=== PATIENT | female | born 1970 | race American Indian/Alaskan Native ===

== ENCOUNTER 2016-07-09 13:23 | Inpatient (IN) | payer MEDICAID ==
[2016-07-09] MEDS ORDERED: NITRO-BID 2% TP ONE (13:46)
[2016-07-09] MEDS ORDERED: ZOFRAN IV ONE (13:46)
[2016-07-09] MEDS ORDERED: MORPHINE IV ONE (13:46)
--- NOTE | 2016-07-09 13:50 | Emergency Department Report ---
ED Chest Pain HPI - General Chief Complaint: Chest Pain Stated Complaint: CHEST PAIN Time Seen by Provider: 07/09/16 13:38 Source: patient, EMS, old records reviewed (cardiac cath 2014 reviewed) Mode of arrival: Stretcher Limitations: No Limitations - History of Present Illness Initial Comments: 45-year-old female with past medical history hypertension, elevated cholesterol , CAD with stent 1 presents to the hospital with complaints of left-sided chest pain that started 2 hours prior to arrival. Pain is squeezing, constant without aggravating alleviating factors. Patient received aspirin and nitroglycerin sublingual 1 prior to arrival without improvement. Positive associated shortness of breath but denies nausea, vomiting, or diaphoresis. Similar to previous PA related chest pain but worse today. Rated 9/10 in intensity. Organ Teacher: Dr. Ross Severity scale (0 -10): 9 - Related Data Home Medications Medication Instructions Recorded Confirmed Last Taken Prasugrel (6 Tab) [Effient (6 Tab)] 10 mg PO DAILY 06/19/15 06/19/15 05/29/15 08 :00 Simvastatin [Simvastatin] 20 mg PO DAILY 06/19/15 06/19/15 05/29/15 08:00 Previous Rx's Medication Instructions Recorded Last Taken Type Aspirin [Aspirin TAB] 325 mg PO QDAY #30 tablet 03/29/14 06/18/15 Rx Carvedilol [Coreg] 3.125 mg PO BID #60 tablet 03/29/14 05/29/15 20:00 Rx Ibuprofen [Motrin] 600 mg PO Q6H PRN #30 tablet 06/20/15 Unknown Rx Allergies Allergy/AdvReac Type Severity Reaction Status Date / Time No Known Allergies Allergy Verified 06/19/15 10:18 NELSON score - Nelson Score Age > 65: (0) No Aspirin use within the Past 7 Days: (1) Yes 3 or more CAD Risk Factors: (1) Yes 2 or more Angina events in past 24 hrs: (1) Yes Known CAD with more than 50% Stenosis: (1) Yes Elevated Cardiac Markers: (0) No ST Deviation Greater than 0.5mm: (0) No NELSON Score: 4 ED Review of Systems ROS: Stated complaint: CHEST PAIN Other details as noted in HPI Comment: All other systems reviewed and negative Other: Constitutional: No fevers chills Eyes: No eye pain visual changes ENT: No ear pain or throat pain Neck: Denies pain Respiratory: Denies cough wheezing Cardiovascular: Denies palpitations, syncope GI: Denies abdominal pain, nausea, vomiting, diarrhea : Denies dysuria, urinary frequency, or urgency Musculoskeletal: Denies back pain, joint swelling Skin: Denies rash, lesions, erythema Neurologic: Denies headache, numbness, weakness Psychiatric: Denies suicidal ideation, hallucinations ED Past Medical Hx - Past Medical History Hx Hypertension: Yes (since 2013) Hx Heart Attack/AMI: Yes (02/2014) Hx Diabetes: No Hx Renal Disease: No Hx Headaches / Migraines: Yes (rare migraine) Hx Asthma: No Hx COPD: No Additional medical history: Syncope of unknown etiology usually associated with hot environment. - Surgical History Hx Coronary Stent: Yes (x2 02/2014) Hx Pacemaker: No Additional Surgical History: Stent placement 03/28/2014. - Social History Smoking Status: Never Smoker - Medications Home Medications: Home Medications Medication Instructions Recorded Confirmed Last Taken Type Aspirin [Aspirin TAB] 325 mg PO QDAY #30 tablet 03/29/14 06/20/15 06/18/15 Rx Carvedilol [Coreg] 3.125 mg PO BID #60 tablet 03/29/14 06/19/15 05/29/15 20:00 Rx Prasugrel (6 Tab) [Effient (6 Tab)] 10 mg PO DAILY 06/19/15 06/19/15 05/29/15 08 :00 History Simvastatin [Simvastatin] 20 mg PO DAILY 06/19/15 06/19/15 05/29/15 08:00 History Ibuprofen [Motrin] 600 mg PO Q6H PRN #30 tablet 06/20/15 Unknown Rx ED Physical Exam - General Limitations: No Limitations - Other Other exam information: General: No limitations, patient is alert in no acute distress Head exam: Atraumatic, normocephalic Eyes exam: Normal appearance, pupils equal reactive to light, extraocular movements intact ENT: Moist mucous membrane, normal oropharynx Neck exam: Normal inspection, full range of motion, no meningismus nontender Respiratory exam: Clear to auscultation bilateral, no wheezes, rales, crackles, chest wall nontender Cardiovascular: Normal rate and rhythm, normal heart sounds Abdomen: Soft, nondistended, and nontender, with normal bowel sounds, no rebound, or guarding Extremity: Full range of motion normal inspection no deformity, no calf tenderness or edema Back: Normal Inspection, full range of motion, no tenderness Neurologic: Alert, oriented x3, cranial nerves intact, no motor or sensory deficit Psychiatric: normal affect, normal mood Skin: Warm, dry, intact ED Course Vital Signs 07/09/16 07/09/16 13:26 14:55 Pulse Rate 84 Respiratory 16 Rate Blood Pressure 140/80 134/79 Blood Pressure 140/80 [Left] O2 Sat by Pulse 98 Oximetry - Reevaluation(s) Reevaluation #1: 07/09/16 14:58 Patient received aspirin, morphine, and nitroglycerin 0.5 in paste with some improvement in pain. 07/09/16 15:07 Reevaluation #2: 07/09/16 15:07 Patient continues to complain of pain in that medications did not help. Dilaudid 0.5 mg ordered 07/09/16 15:07 - Consultations Consultation #1: 07/09/16 15:04 Case discussed with Breann jean baptiste. Cardiology will evaluate patient ED Medical Decision Making - Lab Data Result diagrams: 07/09/16 14:13 07/09/16 14:13 Lab Results 07/09/16 07/09/16 07/09/16 Range/Units 14:13 14:13 14:13 WBC 7.0 (4.5-11.0) K/mm3 RBC 4.10 (3.65-5.03) M/mm3 Hgb 11.2 (10.1-14.3) gm/dl Hct 34.5 (30.3-42.9) % MCV 84 (79-97) fl MCH 27 L (28-32) pg MCHC 32 (30-34) % RDW 14.1 (13.2-15.2) % Plt Count 294 (140-440) K/mm3 Lymph % (Auto) 35.8 H (13.4-35.0) % [place] % (Auto) 9.4 H (0.0-7.3) % Eos % (Auto) 1.7 (0.0-4.3) % Baso % (Auto) 0.7 (0.0-1.8) % Lymph # 2.5 (1.2-5.4) K/mm3 [place] # 0.7 (0.0-0.8) K/mm3 Eos # 0.1 (0.0-0.4) K/mm3 Baso # 0.0 (0.0-0.1) K/mm3 Seg Neutrophils % 52.4 (40.0-70.0) % Seg Neutrophils # 3.6 (1.8-7.7) K/mm3 PT (12.2-14.9) Sec. INR (0.87-1.13) Sodium 142 (137-145) mmol/L Potassium 4.2 (3.6-5.0) mmol/L Chloride 103.1 (98-107) mmol/L Carbon Dioxide 22 (22-30) mmol/L Anion Gap 21 mmol/L BUN 12 (7-17) mg/dL Creatinine 0.7 (0.7-1.2) mg/dL Estimated GFR > 60 ml/min BUN/Creatinine Ratio 17.14 % Glucose 97 (65-100) mg/dL Calcium 9.2 (8.4-10.2) mg/dL Total Creatine Kinase 130 (30-135) units/L CK-MB (CK-2) 1.6 (0.0-4.0) ng/mL CK-MB (CK-2) Rel Index 1.2 (0-4) Troponin T < 0.010 (0.00-0.029) ng/mL 07/09/16 Range/Units 14:13 WBC (4.5-11.0) K/mm3 RBC (3.65-5.03) M/mm3 Hgb (10.1-14.3) gm/dl Hct (30.3-42.9) % MCV (79-97) fl MCH (28-32) pg MCHC (30-34) % RDW (13.2-15.2) % Plt Count (140-440) K/mm3 Lymph % (Auto) (13.4-35.0) % [place] % (Auto) (0.0-7.3) % Eos % (Auto) (0.0-4.3) % Baso % (Auto) (0.0-1.8) % Lymph # (1.2-5.4) K/mm3 [place] # (0.0-0.8) K/mm3 Eos # (0.0-0.4) K/mm3 Baso # (0.0-0.1) K/mm3 Seg Neutrophils % (40.0-70.0) % Seg Neutrophils # (1.8-7.7) K/mm3 PT 12.1 L (12.2-14.9) Sec. INR 0.90 (0.87-1.13) Sodium (137-145) mmol/L Potassium (3.6-5.0) mmol/L Chloride (98-107) mmol/L Carbon Dioxide (22-30) mmol/L Anion Gap mmol/L BUN (7-17) mg/dL Creatinine (0.7-1.2) mg/dL Estimated GFR ml/min BUN/Creatinine Ratio % Glucose (65-100) mg/dL Calcium (8.4-10.2) mg/dL Total Creatine Kinase (30-135) units/L CK-MB (CK-2) (0.0-4.0) ng/mL CK-MB (CK-2) Rel Index (0-4) Troponin T (0.00-0.029) ng/mL - EKG Data -: EKG Interpreted by Me (nsr rate 78 nonstemi) - EKG Data When compared to previous EKG there are: no significant change (04/25/14) - Radiology Data Radiology results: report reviewed (cxr: naf) - Medical Decision Making ED workup unremarkable. Given patient's history will admit the hospital further cardiac enzymes, monitoring, and evaluation - Differential Diagnosis PA, unstable angina, atypical chest pain, PE Critical Care Time: No Critical care attestation.: If time is entered above; I have spent that time in minutes in the direct care of this critically ill patient, excluding procedure time. ED Disposition Clinical Impression: H/O heart artery stent Chest pain Qualifiers: Chest pain type: chest pain on breathing Qualified Code(s): R07.1 - Chest pain on breathing Hyperlipidemia Qualifiers: Hyperlipidemia type: unspecified Qualified Code(s): E78.5 - Hyperlipidemia, unspecified Disposition: OP ADMITTED IP TO THIS HOSP Is pt being admited?: Yes Condition: Stable Referrals: PRIMARY CARE, [Primary Care Provider] - 3-5 Days Time of Disposition: 15:01 (DR allred/hosp)
--- NOTE | 2016-07-09 13:59 | Admit Criteria Form ---
Admission Criteria Documentation: CHEST PAIN Clinical Indications for Admission to Inpatient Care (Place 'X' for any and all applicable criteria): Admission is indicated for chest pain and ANY ONE of the following(1)(2)(3)(4)(5 ): [ ]I. Angina with acute coronary syndrome (Also use Myocardial Infarction or Angina guideline) [ ]II. Hemodynamic instability [ X]III. Angina needing acute intervention as indicated by ALL of the following (11)(12): [X ]a) Unstable angina is present as indicated by angina that is ANY ONE of the following: [X ]i) New onset [ ]ii) Nocturnal [ ]iii) Prolonged at rest [ ]iv) Progressive [X ]b) Angina warrants acute intervention as indicated by ANY ONE of the following: [ ]i) Recurrent angina (e.g, not responding as previously to treatment) [ ]ii) Angina at rest or with low-level activities despite initial medical therapy [ ]iii) New or presumably new ST-segment depression on ECG [ ]iv) Signs or symptoms of heart failure (eg, dyspnea, pulmonary edema) [ ]v) New or worsening mitral regurgitation [ ]vi) Hemodynamic instability [ ]vii) Dangerous arrhythmia (eg, sustained ventricular tachycardia) [ ]viii) History of percutaneous coronary intervention within 6 months [ ]ix) History of coronary artery bypass graft surgery [X ]x) NELSON risk score of 2 or greater[A] [ ]xi) History of Diabetes(14) [ ]xii) High-risk cardiac ischemia findings on noninvasive testing (e.g, echocardiogram, treadmill testing, nuclear scan) [ ]xiii) Chronic renal insufficiency (ie, estimated GFR less than 60 mL/min/1.732m) [ ]xiv) Left ventricular ejection fraction less than 40% [ ]IV. Evidence of [place] (eg, cardiac biomarkers positive, ST-segment elevation on ECG) also use Myocardial Infarction Criteria Form. [ ]V. Pulmonary edema [ ]. Respiratory distress [ ]VII. Chest pain indicative of serious diagnosis other than coronary artery disease (eg, aortic dissection) [ ]VIII. Contraindications and/or Inappropriate clinical situations for Observational Care in patients with Chest Pain, when ANY ONE of the following is required: [ ]a) Patient with risk factor for pulmonary embolism, acute coronary syndrome and myocardial infarction (18) [ ]b) Patient with Pulmonary embolism require an average LOS of 4.3 days, therefore emergency department observation management is inappropriate 18,23 [ ]c) Painful condition/s in the elderly, have the highest rate of recidivism after emergency department observation management (10.8%) 20,21,22 [ ]d) Elevated cardiac biomarker requires intensive and exhaustive care (19) [ ]IX. General contraindications and/or Inappropriate clinical situations for Observational Care in patients with Chest Pain, when ANY ONE of the following is required: [ ]a) Prediction of prolongation of LOS based on ANY ONE of the following may be considered as a contraindication for observational care 2, 3, 4, 5, 6, 7, 8, 9, 10, 11 [ ]i) Age > 65 yrs. [ ]ii) Patient arriving by ambulance [ ]iii) Patient with high acuity [ ]iv) Patient requiring vital sign monitoring [ ]v) Patient on IV medication [ ]b) Systolic blood pressures 180mmHg 3,12 [ ]c) Patient with altered mental status including delirium and other alteration of consciousness, (3) [ ]d) Patient whose discharge disposition will be to a detention home or rehabilitation home should not be managed in Emergency Department Observation Unit. CMS rule requires 3 days hospital stay before such placement. 3,13 [ ]e) Patient with failure to thrive due to broad array of etiologies 3,16,17 [ ]f) Inability to ambulate 3,14 Extended stay beyond goal length of stay may be needed for (1)(28): [ ]a) Specific condition diagnosed after evaluation (eg, pulmonary embolism, aortic dissection) [ ]b) Unstable angina [ ]c) Continued suspicion of acute coronary syndrome with inability to complete needed cardiac evaluation (eg, patient clinically unable to undergo stress testing) [ ]d) Myocardial infarction (Contents from ANGINA and CHEST PAIN clinical indications for admission to inpatient care have been integrated in this form) The original [employer] content created by [email or web address] has been revised. The portions of the content which have been revised are identified through the use of italic text or in bold, and [email or web address] has neither reviewed nor approved the modified material. All other unmodified content is copyright [employer]. Please see references footnoted in the original [facility] edition 2016 Admission Criteria Met: Yes
[2016-07-09 14:27] LABS: Basophils % (Auto) 0.7 % (0.0-1.8); Eosinophils % (Auto) 1.7 % (0.0-4.3); Hematocrit 34.5 % (30.3-42.9); Hemoglobin 11.2 gm/dl (10.1-14.3); Mean Corpuscular HGB Conc 32 % (30-34); Mean Corpuscular Hemoglobin 27 pg (28-32); Mean Corpuscular Volume 84 fl (79-97); Platelet Count 294 K/mm3 (140-440); Red Cell Distribution Width 14.1 % (13.2-15.2)
[2016-07-09 14:40] LABS: INR 0.9 (0.87-1.13)
[2016-07-09 14:50] LABS: Anion Gap 21 mmol/L; BUN/Creatinine Ratio 17.14; Blood Urea Nitrogen 12 mg/dL (7-17); Calcium 9.2 mg/dL (8.4-10.2); Carbon Dioxide 22 mmol/L (22-30); Chloride 103.1 mmol/L (98-107); Glucose 97 mg/dL (65-100); Potassium 4.2 mmol/L (3.6-5.0); Sodium 142 mmol/L (137-145)
[2016-07-09 14:51] LABS: Creatine Kinase MB 1.6 ng/mL (0.0-4.0)
--- NOTE | 2016-07-09 14:51 | XRay Report ---
AP CHEST: HISTORY: chest pain AP view of the chest demonstrates a normal mediastinal and cardiac contour with clear lungs and normal bony and soft tissue structures. IMPRESSION: Unremarkable AP chest. No change since 03/24/14.
[2016-07-09] MEDS ORDERED: DILAUDID IV ONE (15:07)
--- NOTE | 2016-07-09 15:29 | Consultation ---
History of Present Illness Consult date: 07/09/16 Requesting physician: BRISEIDA PÉREZ Consult reason: chest pain History of present illness: The patient is a 45 year old female who is followed by Dr. César Ross in the office with a history of CAD s/p PCI of RCA (2013) who presented with complaints of precordial chest pain that started earlier today as she was getting out of the bathtub. She describes the pain as a sharp and squeezing sensation. Associated with shortness of breath and worse with deep inspiration. No palpitations, nausea or vomiting. She states that nitroglycerin has not helped at all. First troponin negative. Stress test done 05/2015 was negative for ischemia. Echo done 05/2015 showed EF 45-50%. Past History Past Medical History: CAD, hyperlipidemia Past Surgical History: PTCA Social history: denies: smoking, alcohol abuse, prescription drug abuse, IV drug use Family history: no significant family history Medications and Allergies Allergies Allergy/AdvReac Type Severity Reaction Status Date / Time No Known Allergies Allergy Verified 06/19/15 10:18 Home Medications Medication Instructions Recorded Confirmed Last Taken Type Aspirin [Aspirin TAB] 325 mg PO QDAY #30 tablet 03/29/14 07/09/16 06/18/15 Rx Carvedilol [Coreg] 3.125 mg PO BID #60 tablet 03/29/14 07/09/16 05/29/15 20:00 Rx Simvastatin [Simvastatin] 20 mg PO DAILY 06/19/15 07/09/16 05/29/15 08:00 History Citalopram [celeXA] 20 mg PO QDAY 07/09/16 07/09/16 Unknown History Prasugrel [Effient] 10 mg PO QDAY 07/09/16 07/09/16 Unknown History Active Meds: Active Medications Enoxaparin Sodium (Lovenox) 40 mg SUB-Q QDAY LEYDI Review of Systems Constitutional: no fever, no chills Ears, nose, mouth and throat: no nasal congestion, no nasal discharge, no sinus pressure Cardiovascular: chest pain, shortness of breath, no palpitations Respiratory: shortness of breath, no cough, no congestion, no wheezing Gastrointestinal: no abdominal pain, no nausea, no vomiting, no diarrhea Genitourinary Female: no dysuria, no urgency Musculoskeletal: no neck stiffness, no neck pain, no myalgias Integumentary: no rash, no pruritis Neurological: no parathesias, no numbness, no tingling, no headaches Endocrine: no cold intolerance, no heat intolerance Hematologic/Lymphatic: no easy bruising, no easy bleeding Allergic/Immunologic: no urticaria, no wheezing Physical Examination Vital Signs Pulse Resp BP Pulse Ox 84 16 140/80 98 07/09/16 13:26 07/09/16 13:26 07/09/16 13:26 07/09/16 13:26 General appearance: no acute distress HEENT: Positive: PERRL, Normocephaly, Mucus Membranes Moist Neck: Positive: neck supple, trachea midline Cardiac: Positive: Reg Rate and Rhythm, S1/S2 Lungs: Positive: clear to auscultation Neuro: Positive: Grossly Intact Abdomen: Positive: Soft, Active Bowel Sounds. Negative: Tender Skin: Positive: Clear. Negative: Rash Extremities: Present: normal. Absent: edema Results 07/09/16 14:13 07/09/16 14:13 - Imaging and Cardiology Echo: pending, report reviewed (05/2015: EF 45-50%) EKG: image reviewed EKG interpretations - Telemetry EKG Rhythm: Sinus Rhythm - EKG Sinus rhythms and dysrhythmias: sinus rhythm Assessment and Plan Chest pain troponin negative x 1, will trend stress test in am if enzymes remain negative obtain echo Coronary artery disease s/p PCI of RCA with BMS (02/2014) stress MPI 05/2015: no ischemia Echo 05/2015: EF 45-50% continue ASA, Effient, statin Hyperlipidemia Will obtain additional sets of cardiac enzymes. Obtain echo. Stress test in am if enzymes remain negative. The patient has been seen in conjunction with Dr. Valencia who agrees with the assessment and plan of care. Thank you Dr. Pérez for allowing us to participate in the care of this patient.
[2016-07-09 21:56] LABS: Creatine Kinase MB 1.4 ng/mL (0.0-4.0)
--- NOTE | 2016-07-10 03:13 | Event Note ---
Date: 07/09/16 See H/p in reports Chest pain-DDx ACS /Gerd/Costochondritis CAD HTN
[2016-07-10] MEDS ORDERED: MILK OF MAGNESIA PO PRN (03:23)
[2016-07-10] MEDS ORDERED: TYLENOL PO PRN (03:23)
[2016-07-10] MEDS ORDERED: DULCOLAX PR PRN (03:23)
[2016-07-10] MEDS ORDERED: ZOFRAN IV PRN (03:23)
--- NOTE | 2016-07-10 04:15 | History and Physical Report ---
CHIEF COMPLAINT: Chest pain. HISTORY OF PRESENT ILLNESS: A 45-year-old female with history of coronary artery disease and stent x 1, hypertension, hyperlipidemia, comes in for left-sided chest pains 2 hours prior to arrival. Pain is squeezing, constant without aggravating or alleviating factors. The patient received aspirin and nitroglycerin sublingual x1 prior to arrival without improvement. Shortness of breath present. No nausea, no vomiting. No palpitations. The patient's pain is about 9/10. The patient's house wrecker is Dr. Ross. CURRENT MEDICATIONS: Effient 10 mg daily, simvastatin 20 mg daily, Coreg 3.125 b.i.d. NELSON score is 4. PAST MEDICAL HISTORY: As mentioned, significant for hypertension, coronary artery disease and hyperlipidemia. PAST SURGICAL HISTORY: Stent placement. SOCIAL HISTORY: Does not smoke. No alcohol. No recreational drugs. REVIEW OF SYSTEMS: Significant for: CONSTITUTIONAL: No weight loss, no weight gain, no anorexia. HEENT: No sore throat, no postnasal drip. CARDIOVASCULAR AND RESPIRATORY SYSTEM: No shortness of breath. Chest pain present. Eight on a scale of 1-10. GASTROINTESTINAL: No nausea, no vomiting, no diarrhea. GENITOURINARY SYSTEM: No dysuria, no flank pain. MUSCULOSKELETAL SYSTEM: No muscle weakness or cramps. SKIN: No rashes. CENTRAL NERVOUS SYSTEM: No syncope, no seizures. INTEGUMENTARY: No rash, no redness, no ulcers. HEMATOLOGY AND LYMPHATIC SYSTEM: No lymph node enlargement or easy bruising. ENDOCRINE: No cold intolerance or heat intolerance. PSYCHIATRIC: No depression. PHYSICAL EXAMINATION: GENERAL: Middle-aged female, cooperative during examination. VITAL SIGNS: Blood pressure is 140/80, temperature is 98, pulse is 84, respirations 16, sats 98%. HEENT: Unremarkable. Pupils equal and reactive. NECK: Supple, no lymphadenopathy, no thyromegaly. LUNGS: Clear to auscultation and percussion. Good air entry. CARDIOVASCULAR: S1, S2 heard. No gallop, no murmur, no rub. Apical impulse in left fifth intercostal space and midclavicular line. ABDOMEN: Soft and benign. No hepatosplenomegaly. No guarding, no rigidity. Hernial orifices are normal. EXTREMITIES: Good pedal pulses. No pedal edema. CENTRAL NERVOUS SYSTEM: Alert and oriented x 4. NEUROLOGIC: Nonfocal exam. SKIN: Normal. LABORATORY DATA: Labs reviewed, essentially normal. Electrolytes are normal. CK-MB is 130 and 113. Troponin less than 0.010. EKG shows nonspecific ST-T wave changes. Her heart rate of 78. No interval change. Chest x-ray, no abnormal findings reviewed by me. ASSESSMENT AND PLAN: 1. Chest pain, rule out myocardial infarction, chest pain protocol. Differential diagnosis of reflux esophagitis and costochondritis. No chest wall tenderness. Possible gastroesophageal reflux disease. 2. Coronary artery disease. Continue Effient 10 mg daily. 3. Hyperlipidemia. Continue statins. 4. Hypertension. Continue Coreg. 5. Deep venous thrombosis prophylaxis, Lovenox 40 mg subcutaneous daily. 6. Serial cardiac enzymes and Lexiscan in the morning. JOB# [id number] YOLANDA/BANDAR OTT
[2016-07-10] MEDS: COREG PO SCH ×2 (05:38→22:39)
[2016-07-10] MEDS ORDERED: LEXISCAN IV ONE ×2 (08:46→08:49)
--- NOTE | 2016-07-10 10:16 | Progress Note ---
Assessment and Plan Chest pain troponin negative x 3 Echo 06/2016: EF 55-60% stress test today: no significant ischemia Coronary artery disease s/p PCI of RCA with BMS (02/2014) stress MPI 05/2015: no ischemia Echo 05/2015: EF 45-50% continue ASA, Effient, statin Hyperlipidemia Although stress test today revealed no significant ischemia, given persistent pain and history of CAD, will proceed with cardiac cath tomorrow for definitive diagnosis. The patient has been seen in conjunction with Dr. Valencia who agrees with the assessment and plan of care. Subjective Date of service: 07/10/16 Principal diagnosis: chest pain Interval history: The patient is seen and examined in the stress lab. She is feeling better today. Sinus rhythm on the monitor. Objective Last Vital Signs Temp 98.2 F 07/10/16 08:31 Pulse 68 07/10/16 08:31 Resp 18 07/10/16 08:31 BP 107/73 07/10/16 08:31 Pulse Ox 100 07/10/16 08:31 - Physical Examination General: No Apparent Distress HEENT: Positive: PERRL, Normocephaly, Mucus Membranes Moist Neck: Positive: neck supple, trachea midline Cardiac: Positive: Reg Rate and Rhythm, S1/S2 Lungs: Positive: clear to auscultation Neuro: Positive: Grossly Intact Abdomen: Positive: Soft, Active Bowel Sounds. Negative: Tender Skin: Positive: Clear. Negative: Rash Extremities: Present: normal. Absent: edema - Labs and Meds Cardiac Enzymes 07/09/16 Range/Units 21:08 CK-MB (CK-2) 1.4 (0.0-4.0) ng/mL - Imaging and Cardiology EKG: image reviewed Echo: report reviewed (06/2016: EF 55-60%) - Telemetry EKG Rhythm: Sinus Rhythm - EKG Sinus rhythms and dysrhythmias: sinus rhythm
--- NOTE | 2016-07-10 12:02 | Echocardiography Report ---
Transthoracic Echocardiogram Indication: Chest Pain BP: 120/76 Conclusions *The left ventricular chamber size is normal. *There is no left ventricular hypertrophy. *The estimated ejection fraction is 55-60%. *The left atrial chamber size is normal. *Normal left ventricular diastolic filling is observed. Findings Procedure Info: The study quality is good. Left Ventricle: The left ventricular chamber size is normal. There is no left ventricular hypertrophy. Global left ventricular systolic function is normal. The estimated ejection fraction is 55-60%. Normal left ventricular diastolic filling is observed. Left Atrium: The left atrial chamber size is normal. Right Ventricle: The right ventricle wall thickness is normal. The right ventricular cavity size is normal. The right ventricular global systolic function is normal. Right Atrium: The right atrial cavity size is normal. Aortic Valve: The aortic valve is trileaflet. There is no evidence of aortic regurgitation. There is no evidence of aortic stenosis. Mitral Valve: The anterior leaflet of the mitral valve is thickened. There is mild mitral regurgitation. There is no evidence of mitral stenosis. Tricuspid Valve: The tricuspid valve is not well visualized. There is mild tricuspid regurgitation. There is no tricuspid stenosis. Pulmonic Valve: There is no evidence of pulmonic regurgitation. There is no pulmonic stenosis. Pericardium: There is no pericardial effusion. No pleural effusion is present. Pulmonary Artery: The main pulmonary artery is not well visualized. Venous: The inferior vena cava appears normal in size. Measurements Chambers MM Name Value Normal Range IVSd (MM) 1.1 cm (0.6 - 1.1) LVPWd (MM) 1.02 cm (0.6 - 1.1) IVS:LVPW ratio 1.08 ratio - LVIDd (MM) 4.54 cm (3.7 - 5.6) LVIDs (MM) 3.1 cm (2 - 2.8) LV FS (Teichholz) (MM) 31.7 % - LV FS (cube) (MM) 31.7 % - EF Teichholz (MM) 59.9 % - Ao root diameter (MM) 2.9 cm (2 - 3.7) LA dimension (AP) MM 3.2 cm (1.9 - 4) LA:Ao ratio (MM) 1.1 ratio - AV cusp separation (MM) 1.9 cm (1.5 - 2.6) Chambers 2D Name Value Normal Range IVSd (2D) 0.87 cm (0.6 - 1.1) LVPWd 1.1 cm - LVPWd (2D) 1.13 cm (0.6 - 1.1) IVS:LVPW ratio (2D) 0.77 ratio - LVIDd 4.2 cm - LVIDs 2.7 cm - LVIDd (2D) 4.17 cm (3.7 - 5.6) LVIDs (2D) 2.7 cm (2 - 3.8) LV FS (Teichholz) (2D) 35.3 % - LV FS (cube) (2D) 35.3 % - LV EF (2D) 65 % - EF Teichholz (2D) 65.1 % - LA dimension 2.4 cm - Ao root diameter (2D) 3 cm (2 - 3.7) LA dimension (AP) 2D 2.4 cm (1.9 - 4) LA:Ao ratio (2D) 0.8 ratio - Volumes/Mass Name Value Normal Range LA ESV SP 4CH (MOD) 9 ml - Diastolic/Systolic Function Name Value Normal Range MV E-wave Vmax 0.58 m/sec - MV deceleration time 141 msec - MV A-wave Vmax 0.53 m/sec - MV E:A ratio 1.1 ratio - LV septal e' Vmax 0.1 m/sec - LV lateral e' Vmax 0.12 m/sec - LV E:e' septal ratio 5.9 ratio - LV E:e' lateral ratio 4.7 ratio - Aortic Valve Name Value Normal Range AV Vmax 1.34 m/sec - AV peak gradient 7 mmHg - LVOT diameter 1.7 cm - LVOT Vmax 1.01 m/sec - LVOT peak gradient 4 mmHg - SERA (continuity Vmax) 1.71 cm2 - Tricuspid Valve Name Value Normal Range TR Vmax 2.23 m/sec - TR peak gradient 20 mmHg - RAP 3 mmHg - RVSP 23 mmHg - Pulmonic Valve/Qp:Qs Name Value Normal Range PV Vmax 0.6 m/sec - PV peak gradient 1 mmHg - NH end-diastolic Vmax 1.02 m/sec - PV acceleration time 137 msec -
[2016-07-10] MEDS: celeXA PO SCH (13:47)
[2016-07-10] MEDS: EFFIENT PO SCH (13:48)
[2016-07-10] MEDS: ZOCOR PO SCH (13:48)
[2016-07-10] MEDS: ASPIRIN PO SCH (13:48)
[2016-07-10] MEDS: LOVENOX SUB-Q SCH (13:48)
[2016-07-10] MEDS ORDERED: FLUARIX QUAD 2016-2017(36 MOS+) IM ONE (14:00)
[2016-07-10] MEDS ORDERED: NACL 0.9% 500 ML 500 ML IV SCH (15:00)
[2016-07-11] MEDS ORDERED: NACL 0.9% 1000 ML 1,000 ML IV SCH ×2 (03:00→09:00)
--- NOTE | 2016-07-11 04:34 | Event Note ---
Date: 07/10/16 Pt seen and evaluated. Care plan discussed. No significant new physical exam findings. Pending cardiac workup.
[2016-07-11 05:47] LABS: Basophils % (Auto) 0.6 % (0.0-1.8); Eosinophils % (Auto) 1.8 % (0.0-4.3); Hematocrit 36.2 % (30.3-42.9); Hemoglobin 11.6 gm/dl (10.1-14.3); Mean Corpuscular HGB Conc 32 % (30-34); Mean Corpuscular Hemoglobin 27 pg (28-32); Mean Corpuscular Volume 85 fl (79-97); Platelet Count 279 K/mm3 (140-440); Red Blood Count 4.28 M/mm3 (3.65-5.03); Red Cell Distribution Width 14.6 % (13.2-15.2); White Blood Count 8.1 K/mm3 (4.5-11.0)
[2016-07-11 05:55] LABS: INR 1.02 (0.87-1.13); Partial Thromboplastin Time 26.9 Sec. (24.2-36.6)
[2016-07-11 06:01] LABS: Blood Urea Nitrogen 14 mg/dL (7-17); Calcium 9.3 mg/dL (8.4-10.2); Carbon Dioxide 27 mmol/L (22-30); Chloride 103.5 mmol/L (98-107); Glucose 103 mg/dL (65-100); Potassium 4.3 mmol/L (3.6-5.0); Sodium 144 mmol/L (137-145)
[2016-07-11 06:04] LABS: Anion Gap 18 mmol/L
[2016-07-11] MEDS ORDERED: ASPIRIN ONE (06:38)
[2016-07-11] MEDS ORDERED: HEPARIN/NS 5000 UNIT/500ML(CATH LAB) 1,000 ML IR ONE (06:55)
[2016-07-11] MEDS: XYLOCAINE 2% INFILTRATI ONE ×2 (07:17→07:22)
[2016-07-11] MEDS: VERSED ONE ×2 (07:17→07:21)
[2016-07-11] MEDS: SUBLIMAZE ONE ×2 (07:17→07:21)
[2016-07-11] MEDS: HEPARIN 10,000 UNITS/10 ML ONE ×2 (07:18→07:26)
[2016-07-11] MEDS: CALAN ONE ×2 (07:18→07:26)
--- NOTE | 2016-07-11 07:34 | Treadmill Report ---
Resting images revealed homogeneous radioisotope tracer uptake. On post-Lexiscan, images revealed mildly decreased uptake in apex, in the horizontal view and short axis. This is not significant. Gated scan did not reveal any segmental motion abnormality. Ejection fraction was noted to be 55%. IMPRESSION: This test is minimally positive for apical ischemia. Clinical correlation and recommendation suggested. JOB# [id number] MARILEE/BANDAR
--- NOTE | 2016-07-11 08:55 | Progress Note ---
Assessment and Plan Chest pain troponin negative x 3 Echo 06/2016: EF 55-60% stress test today: no significant ischemia Coronary artery disease s/p PCI of RCA with BMS (02/2014) stress MPI 05/2015: no ischemia Echo 05/2015: EF 45-50% continue ASA, Effient, statin Hyperlipidemia. Patient underwent cardiac catheterization because persistent chest pain even though myocardial perfusion imaging done yesterday was unremarkable. Cardiac catheterization was performed using the right radial access. Was uncomplicated. Was noted to have normal LV systolic function and diastolic function, widely patent stent was noted in the mid RCA, only minimal irregularities were noted in the left coronary system. At this time patient chest pain appeared to be noncardiac and nonischemic. Continue her present risk factor modification and medical therapy. Findings were explained to the patient in detail. Patient may be discharged from cardiac point of view after 3 hours of observation if she is stable. Subjective Date of service: 07/11/16 Principal diagnosis: chest pain Interval history: Patient continues to have intermittent chest pain. Sharp, agreeable to proceed with cardiac catheterization for definitive diagnosis and treatment. Patient is aware of the procedure, potential complications and alternatives of therapy available. Objective Vital Signs Temp Pulse Pulse Pulse Resp BP BP 07/11/16 04:51 98.3 F 67 20 07/11/16 00:51 98.6 F 58 L 21 07/10/16 21:44 07/10/16 20:00 98.5 F 66 21 07/10/16 16:51 98.5 F 73 18 07/10/16 13:03 62 07/10/16 12:18 98.4 F 64 18 119/85 07/10/16 09:46 90 111/77 07/10/16 09:45 96 H 119/77 07/10/16 09:44 108 H 125/80 07/10/16 09:43 109 H 129/91 07/10/16 09:42 110 H 124/81 07/10/16 09:41 104 H 121/95 07/10/16 09:13 64 121/86 BP Pulse Ox 07/11/16 04:51 105/79 100 07/11/16 00:51 119/82 100 07/10/16 21:44 100 07/10/16 20:00 120/82 97 07/10/16 16:51 113/78 98 07/10/16 13:03 07/10/16 12:18 100 07/10/16 09:46 07/10/16 09:45 07/10/16 09:44 07/10/16 09:43 07/10/16 09:42 07/10/16 09:41 07/10/16 09:13 - Physical Examination General: No Apparent Distress HEENT: Positive: PERRL, Normocephaly, Mucus Membranes Moist Neck: Positive: neck supple, trachea midline Cardiac: Positive: Reg Rate and Rhythm Lungs: Positive: clear to auscultation Neuro: Positive: Grossly Intact Abdomen: Positive: Soft, Active Bowel Sounds. Negative: Tender Skin: Positive: Clear. Negative: Rash Extremities: Present: normal. Absent: edema - Labs and Meds Coagulation 07/11/16 Range/Units 04:39 PT 13.3 (12.2-14.9) Sec. INR 1.02 (0.87-1.13) APTT 26.9 (24.2-36.6) Sec. CBC 07/11/16 Range/Units 04:39 WBC 8.1 (4.5-11.0) K/mm3 RBC 4.28 (3.65-5.03) M/mm3 Hgb 11.6 (10.1-14.3) gm/dl Hct 36.2 (30.3-42.9) % Plt Count 279 (140-440) K/mm3 Lymph # 3.9 (1.2-5.4) K/mm3 [place] # 0.7 (0.0-0.8) K/mm3 Eos # 0.1 (0.0-0.4) K/mm3 Baso # 0.0 (0.0-0.1) K/mm3 Comprehensive Metabolic Panel 07/11/16 Range/Units 04:39 Sodium 144 (137-145) mmol/L Potassium 4.3 (3.6-5.0) mmol/L Chloride 103.5 (98-107) mmol/L Carbon Dioxide 27 (22-30) mmol/L BUN 14 (7-17) mg/dL Creatinine 0.8 (0.7-1.2) mg/dL Glucose 103 H (65-100) mg/dL Calcium 9.3 (8.4-10.2) mg/dL - Imaging and Cardiology EKG: image reviewed Echo: report reviewed (06/2016: EF 55-60%) - EKG Sinus rhythms and dysrhythmias: sinus rhythm
--- NOTE | 2016-07-11 08:56 | Progress Note ---
Assessment and Plan Assessment and plan: 1. Chest Pain with hx of CAD for cardiac cath today 2. HTN well controlled, continue current meds 3. HLD continue statin. Hospitalist Physical - Constitutional Vitals: Temp Pulse Resp BP Pulse Ox 98.3 F 67 20 105/79 100 07/11/16 04:51 07/11/16 04:51 07/11/16 04:51 07/11/16 04:51 07/11/16 04:51 General appearance: Present: no acute distress Results - Labs CBC & Chem 7: 07/11/16 04:39 07/11/16 04:39 Labs: Laboratory Last Values WBC 8.1 K/mm3 (4.5-11.0) 07/11/16 04:39 RBC 4.28 M/mm3 (3.65-5.03) 07/11/16 04:39 Hgb 11.6 gm/dl (10.1-14.3) 07/11/16 04:39 Hct 36.2 % (30.3-42.9) 07/11/16 04:39 MCV 85 fl (79-97) 07/11/16 04:39 MCH 27 pg (28-32) L 07/11/16 04:39 MCHC 32 % (30-34) 07/11/16 04:39 RDW 14.6 % (13.2-15.2) 07/11/16 04:39 Plt Count 279 K/mm3 (140-440) 07/11/16 04:39 Lymph % (Auto) 47.9 % (13.4-35.0) H 07/11/16 04:39 [place] % (Auto) 9.1 % (0.0-7.3) H 07/11/16 04:39 Eos % (Auto) 1.8 % (0.0-4.3) 07/11/16 04:39 Baso % (Auto) 0.6 % (0.0-1.8) 07/11/16 04:39 Lymph # 3.9 K/mm3 (1.2-5.4) 07/11/16 04:39 [place] # 0.7 K/mm3 (0.0-0.8) 07/11/16 04:39 Eos # 0.1 K/mm3 (0.0-0.4) 07/11/16 04:39 Baso # 0.0 K/mm3 (0.0-0.1) 07/11/16 04:39 Seg Neutrophils % 40.6 % (40.0-70.0) 07/11/16 04:39 Seg Neutrophils # 3.3 K/mm3 (1.8-7.7) 07/11/16 04:39 PT 13.3 Sec. (12.2-14.9) 07/11/16 04:39 INR 1.02 (0.87-1.13) 07/11/16 04:39 APTT 26.9 Sec. (24.2-36.6) 07/11/16 04:39 Sodium 144 mmol/L (137-145) 07/11/16 04:39 Potassium 4.3 mmol/L (3.6-5.0) 07/11/16 04:39 Chloride 103.5 mmol/L (98-107) 07/11/16 04:39 Carbon Dioxide 27 mmol/L (22-30) 07/11/16 04:39 Anion Gap 18 mmol/L 07/11/16 04:39 BUN 14 mg/dL (7-17) 07/11/16 04:39 Creatinine 0.8 mg/dL (0.7-1.2) 07/11/16 04:39 Estimated GFR > 60 ml/min 07/11/16 04:39 BUN/Creatinine Ratio 17.50 % 07/11/16 04:39 Glucose 103 mg/dL (65-100) H 07/11/16 04:39 POC Glucose 94 (70-105) 07/10/16 20:39 Calcium 9.3 mg/dL (8.4-10.2) 07/11/16 04:39 Total Creatine Kinase 113 units/L (30-135) 07/09/16 21:08 CK-MB (CK-2) 1.4 ng/mL (0.0-4.0) 07/09/16 21:08 CK-MB (CK-2) Rel Index 1.2 (0-4) 07/09/16 21:08 Troponin T < 0.010 ng/mL (0.00-0.029) 07/09/16 21:08
--- NOTE | 2016-07-11 09:41 | Cardiac Catherization Report ---
INDICATIONS: The patient is a 45-year-old [place] female with history of known coronary artery disease, intervention of the mid RCA few years ago, subsequently had atypical chest pain, had a catheterization done which was unremarkable that was more than a year ago. Presently presents with atypical persistent chest pains and negative nuclear imaging. However, because of persistent chest pain, the patient insisted that she have further evaluation with previous atypical chest pains and negative thallium, she was noted to have significant RCA lesion. Hence, even though patient's chest pains are atypical, negative stress thallium, it was decided to proceed with cardiac catheterization for definitive diagnosis and treatment. The patient is aware of the procedure, potential complications and alternatives of therapy available. DESCRIPTION OF PROCEDURE: The patient was brought to the catheterization laboratory in a fasting condition. The right wrist area and forearm were thoroughly cleansed with Betadine solution and sterile drapes were applied. Local anesthesia was achieved using 2% Xylocaine. Right radial arterial puncture was made using 21-gauge arterial puncture needle. Subsequently, a 5-Tongan sheath was introduced. The patient received 3000 units of intravenous heparin and 5 mg of intra-arterial verapamil. Subsequently, using 5-Tongan multipurpose catheter, left ventriculogram was performed in [place] projection using hand injection followed by angiograms of the right coronary artery in multiple views. A 5-[place]ong[place] TIG catheter was used to obtain the angiograms of the left coronary artery in multiple views. After obtaining the angiograms, catheter and sheath were removed. Good hemostasis was achieved with pressure bandage. The patient tolerated the procedure well with no untoward complications. HEMODYNAMICS: 1. Opening aortic pressure 96/57, left ventricular pressure 96/5. No gradient across the aortic valve. Estimated ejection fraction 55%. 2. Left ventriculogram done in HIDALGO projection using hand injection showed normal sized left ventricle with normal contractility. Diastolic and systolic volumes are normal. Only limited amount of dye was injected. Mitral regurgitation could not be evaluated. 3. Right coronary artery dominant vessel shows widely patent mid RCA stent. No instent restenosis noted. Angiographically, right coronary appears to be smooth and normal with widely patent stent. 4. Left coronary artery arises normally from left coronary cusp. Left main shows very mild smooth ostial lesion. LAD shows mild irregularity in the mid part. Otherwise, rest of the LAD and its branches and circumflex artery and nondominant circumflex artery are angiographically smooth and normal. FINAL IMPRESSION: Normal sized left ventricle with normal contractility. Normal end diastolic pressure noted. Widely patent mid RCA stent was noted with minimal disease in the left coronary system. At this time, the patient does not have significant coronary disease to explain her symptoms, chest pains appeared to be atypical and nonischemic. The patient is on appropriate medication, it appears medical therapy and risk factor modification is helping her coronary artery disease. Presently, no significant coronary disease noted. Continue present treatment. Procedure was uncomplicated. Findings were explained to the patient. JOB# [id number] ZAHRA/BANDAR
[2016-07-11] MEDS: ASPIRIN PO SCH (12:40)
[2016-07-11] MEDS: COREG PO SCH (12:40)
[2016-07-11] MEDS: celeXA PO SCH (12:40)
[2016-07-11] MEDS: ZOCOR PO SCH (12:40)
[2016-07-11] MEDS: EFFIENT PO SCH (12:40)
[2016-07-11] MEDS: LOVENOX SUB-Q SCH (12:53)
--- NOTE | 2016-07-11 16:38 | Discharge Summary ---
Providers - Providers Date of Admission: 07/09/16 15:02 Attending physician: EDNA ITRADO MD 07/09/16 15:03 Consult to Physician [CONS] Urgent Consulting Provider: YESY SAMSON Reason For Exam: cp, hx of stent Notified:: y If yes, spoke with:: Breann Gonzalez 07/11/16 08:53 Consult to Cardiac Rehabilitation [CONS] Routine Reason For Exam: Cardiac Rehab Evaluation Primary care physician: HITESH BASURTO MD Hospitalization Condition: Stable Hospital course: 1. Chest Pain with hx of CAD for cardiac cath today 2. HTN well controlled, continue current meds 3. HLD continue statin. Disposition: DISCHARGED TO HOME OR SELFCARE Time spent for discharge: 35 minutes Core Measure Documentation - Palliative Care Palliative Care/ Comfort Measures: Not Applicable - Core Measures Any of the following diagnoses?: none Exam - Constitutional Vitals: Temp Pulse Resp BP Pulse Ox 98.2 F 87 18 107/81 100 07/11/16 12:31 07/11/16 12:40 07/11/16 12:31 07/11/16 12:40 07/11/16 12:31 General appearance: Present: no acute distress, well-nourished - EENT Eyes: Present: PERRL ENT: hearing intact, clear oral mucosa - Neck Neck: Present: supple, normal ROM - Respiratory Respiratory effort: normal Respiratory: bilateral: CTA - Cardiovascular Heart Sounds: Present: S1 & S2. Absent: rub, click - Extremities Extremities: pulses symmetrical, No edema Peripheral Pulses: within normal limits - Abdominal General gastrointestinal: Present: soft, non-tender, non-distended, normal bowel sounds Female genitourinary: Present: normal - Integumentary Integumentary: Present: clear, warm, dry - Musculoskeletal Musculoskeletal: gait normal, strength equal bilaterally - Psychiatric Psychiatric: appropriate mood/affect, intact judgment & insight - Neurologic Neurologic: CNII-XII intact, moves all extremities Plan Follow up with: PRIMARY CAREMD [Primary Care Provider] - 3-5 Days Prescriptions: Pantoprazole [Protonix] 40 mg PO QDAY #30 tablet
[2016-07-11 17:01] VITALS: BP 107/79
== END 2016-07-11 17:30 | disposition home or self-care (01) | DRG 287 ==
LOC: ED 13:23 → 4A 15:02
PROVIDERS: ADMIT Internal Medicine; ATTEND Internal Medicine
PROC: 4A023N7 Measurement of Cardiac Sampling and Pressure, Left Heart, Percutaneous Approach (ICD-10-PCS; principal; 2016-07-11)
PROC: B2111ZZ Fluoroscopy of Multiple Coronary Arteries using Low Osmolar Contrast (ICD-10-PCS; 2016-07-11)
PROC: B2151ZZ Fluoroscopy of Left Heart using Low Osmolar Contrast (ICD-10-PCS; 2016-07-11)
DX: R07.89 Other chest pain (principal); I25.10 Atherosclerotic heart disease of native coronary artery without angina pectoris; K21.9 Gastro-esophageal reflux disease without esophagitis; E78.5 Hyperlipidemia, unspecified; I10 Essential (primary) hypertension; Z95.5 Presence of coronary angioplasty implant and graft; I25.2 Old myocardial infarction
CPT/HCPCS: 36415; 71010; 78452; 80048; 82550; 82553; 82962; 84484; 85025; 85610; 85730; 90471; 90686; 93005; 93010; 93017; 93458; 96374; 96375; 99406; A9502; C1887; C1894; C8929; J1170; J1644; J1650; J2250; J2270; J2405; J2785; J3010; J7030; Q9957; Q9967

== ENCOUNTER 2017-03-23 12:31 | Outpatient (CLI) | payer MEDICAID ==
--- NOTE | 2017-03-23 15:17 | Magnetic Resonance Report ---
MRI UPPER EXTREMITY JOINT RIGHT WITHOUT CONTRAST History: Pain in right shoulder. Technique: Multisequence, multiplanar MRI through the right shoulder. Comparison: None at this facility. Findings: The distal supraspinatus tendon is abnormal. An intrasubstance tear of the distal supraspinatus tendon is detected. There also appears to be a partial tear along the bursal surface of the distal supraspinatus tendon. There is moderate fluid in the subacromial and subdeltoid spaces. No significant joint effusion. The infraspinatus, teres minor and subscapularis tendons are intact and within normal limits. The long head of the biceps tendon and its attachment on the superior labrum are intact. Minimal osteoarthritic changes are identified at the acromioclavicular joint. Normal articulation of the glenohumeral joint. The bone marrow signal is within normal limits. No evidence for fracture, bone lesion or bone marrow edema. No gross labral defect although arthrogram was not performed. The periarticular musculature is within normal limits. Impression: Intrasubstance tear in the distal supraspinatus tendon. There also appears to be a partial thickness tear of the distal supraspinatus tendon along its bursal surface. Minimal osteoarthritic changes. Moderate fluid in the subacromial and subdeltoid bursa.
== END 2017-03-23 12:32 | disposition home or self-care (01) ==
LOC: MRI 12:31
PROVIDERS: ATTEND General Practice
DX: M75.101 Unspecified rotator cuff tear or rupture of right shoulder, not specified as traumatic (principal); M19.011 Primary osteoarthritis, right shoulder; I11.0 Hypertensive heart disease with heart failure; I50.9 Heart failure, unspecified; E78.00 Pure hypercholesterolemia, unspecified; I25.10 Atherosclerotic heart disease of native coronary artery without angina pectoris